=== PATIENT | male | born 1945 | race Caucasian/White ===

== ENCOUNTER 2018-11-04 09:18 | Outpatient (CLI) | payer MEDICARE ==
--- NOTE | 2018-11-04 11:22 | CT ---
CT THORAX NONCONTRAST: DATE: 11-04-18 HISTORY: 72-year-old male for follow up diagnosis of MAC (mycobacterium-avium complex) COMPARISON: 11-06-17 FINDINGS: There is no interval change in the size of the region of consolidation involving the posterior segmen t of the right upper lobe, broadly abutting the posterior pleural surface, and almost reaching the ri ght apex. There is extensive air bronchogram with bronchiectasis within this. What appears to be a sm all cavity could instead represent an especially ectatic bronchus, as it has not significantly change d. There has been no interval change overall involving this lesion. In the lateral basilar segment of the left lower lobe, there is a new somewhat spiculated, approximat mary ellen 3 x 1.5 x 2.5 cm soft tissue density pulmonary lesion. There is another new finding of herniation of approximately 15-20% volume of the stomach into the low er mediastinum. There is a now greater degree of what are probably chronic lace-like subpleural densities involving t he lingual, than before. There are diffuse centrilobular emphysematous changes throughout both lungs. Trachea and bilateral mainstem bronchi are patent and clear. No mediastinal lymphadenopathy. No thor acic aortic aneurysm. No pleural effusion or pneumothorax. Multiple low attenuation lesions in the le ft lobe of the liver are again noted, consistent with multiple hepatic cysts. IMPRESSION: 1. Consolidation with air bronchogram with bronchiectasis involving posterior segment of right upper lobe is unchanged in one year. 2. New spiculated mass-like density at the lateral basilar segment of left lower lobe. This could eit her present a new infectious lesion or primary neoplasm. Follow up chest CT is strongly recommended i n 1-3 months. 3. New small to moderate sized sliding hiatal hernia. 4. Moderate to severe centrilobular emphysema. Code T JN R POS: JOSH
== END 2018-11-04 09:19 | disposition home or self-care (01) ==
LOC: NAV CT 09:18
PROVIDERS: ATTEND Internal Medicine
DX: R91.1 Solitary pulmonary nodule (principal); J44.9 Chronic obstructive pulmonary disease, unspecified; J47.9 Bronchiectasis, uncomplicated; J43.2 Centrilobular emphysema; K44.9 Diaphragmatic hernia without obstruction or gangrene; R91.8 Other nonspecific abnormal finding of lung field
CPT/HCPCS: 71250

== ENCOUNTER 2019-03-12 09:35 | Outpatient (CLI) | payer MEDICARE ==
--- NOTE | 2019-03-12 10:17 | CT ---
CT Chest WO Con HISTORY:COPD. Pulmonary infiltrates. Mycobacterium avium intracellulare. COMPARISON: 11/04/2018 study FINDINGS: Severe emphysematous lung changes are seen within the upper lobes. The parenchymal changes within the posterior segment of the right upper lobe with associated bronchiectatic change is a stable finding. The left lower lobe parenchymal changes have resolved.. The scarring within the region of the lingula is stable. There are no new infiltrative changes presen t. A large hiatal hernia is present. Coronary artery calcifications are noted. There is stable appearance to the low attenuation lesions within the liver probably related to cysts. Small hypodensity within the right kidney is also probably a small cyst and stable renal calcifications on the right are noted which appear to be renal calculi. Left-sided calcifications donovan ear to be vascular in nature. IMPRESSION: 1. Severe centrilobular and ischemic changes 2. Stable appearance to the right upper lobe parenchymal change and associated traction bronchiectasi s. 3. Interval resolution of the left lower lobe parenchymal lung changes..
== END 2019-03-12 09:36 | disposition home or self-care (01) ==
LOC: NAV CT 09:35
PROVIDERS: ATTEND Internal Medicine
DX: J44.9 Chronic obstructive pulmonary disease, unspecified (principal); R91.8 Other nonspecific abnormal finding of lung field; J47.9 Bronchiectasis, uncomplicated
CPT/HCPCS: 71250

== ENCOUNTER 2020-03-01 11:50 | Outpatient (CLI) | payer MEDICARE ==
--- NOTE | 2020-03-02 11:39 | RAD ---
LUMBAR SPINE 4 VIEWS: Date: 03/01/2020 HISTORY: Back pain. No comparison. FINDINGS: Severe degenerative changes. Large bridging osteophytes are seen in the lower thoracic spine with wed ge compression deformities noted at T11 and T12. There is a compression deformity involving the L3 vertebra with loss of central and anterior height o f over 50%. Posterior height is preserved and posterior alignment is maintained. Postoperative changes are noted. There are pedicle screws at L2, L4, and L5 levels. There is loss of height at L5 and there is loss of disc space at L5-S1. Scoliotic curvature is seen in the AP projection with convexity to the left. Posterior laminectomy ch suleiman in the lower lumbar spine at the site of pedicle screws. Aortic stent graft is noted. IMPRESSION: Severe degenerative changes. Compression deformities are multiple levels with postoperative changes a s described. POS: [facility]
== END 2020-03-01 11:51 | disposition home or self-care (01) ==
LOC: NAV LAB 11:50
PROVIDERS: ATTEND Internal Medicine
DX: M54.5 Low back pain (principal)
CPT/HCPCS: 72100